=== PATIENT | female | born 1945 | race Two or more races ===

== ENCOUNTER 2025-01-11 10:26 | Emergency (ER) | payer OTHER ==
[~2025-01-11] VITALS: Ht 167.6 cm; Wt 61.2 kg
[2025-01-11] MEDS ORDERED: AMLODIPINE-OLM1 EAC3 PO (10:59)
[2025-01-11] MEDS ORDERED: ROSUVASTATIN CA10 MG PO (10:59)
[2025-01-11] MEDS ORDERED: TRELEGY ELLIPT1 EACH IH (10:59)
[2025-01-11] MEDS ORDERED: TOPROL XL50 M1 PO (11:00)
[2025-01-11] MEDS ORDERED: FAMOtidine 10 MG/ML (4ML VIAL) IV STA (11:29)
[2025-01-11] MEDS ORDERED: ONDANSETRON HCL 2 MG/ML VIAL IV ONE (11:30)
[2025-01-11] MEDS ORDERED: ONDANSETRON HCL 2 MG/ML VIAL ONE (11:38)
[2025-01-11] MEDS ORDERED: FAMOTIDINE/PF 20 MG/2 ML VIAL ONE (11:38)
[2025-01-11 12:16] LABS: HEMATOCRIT 40.2 % (36.0-45.00); HEMOGLOBIN 13.6 g/dL (12.0-15.00); MEAN CELL VOLUME 82.6 fL (80.00-100.00); MEAN CORPUSCULAR HEMOGLOBIN 27.8 pg (27.00-32.0); MEAN CORPUSCULAR HGB CONC 33.7 g/dl (32.0-36.0); PLATELET COUNT 248 K/uL (150-450); RED BLOOD COUNT 4.87 M/uL (4.00-6.00); RED CELL DISTRIBUTION WIDTH 13.6 % (11.5-14.5)
[2025-01-11 12:38] LABS: CALCIUM 9.2 mg/dL (8.5-10.1); CREATININE SERUM 1.34 mg/dL (0.55-1.02); GFR 38.15; POTASSIUM 3.36 mEq/L (3.5-5.1)
[2025-01-11 13:24] LABS: PH,URINE 5.5 (5.0-8.0); URINE APPEARANCE Cloudy; URINE BILIRRUBIN Small (NEGATIVE); URINE BLOOD Negative; URINE COLOR Dark Yellow; URINE GLUCOSE Negative (NEGATIVE); URINE KETONE Trace (NEGATIVE); URINE LEUKOCYTE Small; URINE NITRATE Negative
[2025-01-11 13:29] LABS: URINE BACTERIA 352.4 uL (0.0-1933); URINE CAST 17.08 uL (0.0-1.40); URINE EPITHELIAL CELLS 128.8 uL (0.0-38.8); URINE RBC 10.4 uL (0.0-20.8); URINE WBC 92.6 uL (0.0-23.2)
[2025-01-11 14:01] LABS: URINE PROTEIN 100 (NEGATIVE)
== END 2025-01-11 15:17 | disposition home or self-care (01) ==
LOC: ER 10:27
PROVIDERS: General Practice
DX: R10.9 Unspecified abdominal pain (principal); C16.9 Malignant neoplasm of stomach, unspecified
CPT/HCPCS: 36415; 74176; 96365; 99284; J2405; J3490